=== PATIENT | male | born 1950 | race Hispanic/Latino ===

== ENCOUNTER 2017-09-21 06:53 | Day surgery (SDC) | payer MEDICARE, BC ==
[2017-09-21] MEDS ORDERED: Propofol 10 mg/ml Inj (20 ML) ONE ×2 (09:25→09:27)
--- NOTE | 2017-09-21 09:27 | CP.SDSHP ---
Same Day Surgery H & P - History Proposed Procedure: EGD/COLONSCOPY Pre-Op Diagnosis: SEE NOTES - Previous Medical/Surgical History Cardiac: Other Misc: Other Pain: 4.Moderate Pain Previous Surgical History: COLON POLYPS - Allergies Allergies: Allergies No Known Allergies Allergy (Verified 09/21/17 07:13) - Physical Exam General Appearance: N Vital Signs: Vital Signs 09/21/17 07:19 Temperature 96.4 F L Pulse Rate 71 Respiratory 19 Rate Blood Pressure 101/54 L O2 Sat by Pulse 97 Oximetry Mental Status: Alert & Oriented x3 Neuro: WNL Heart: Other Lungs: WNL GI: Other - {Optional Preform as Required} Breast: WNL Abdomen: Other Rectal: Other Integument: WNL : WNL Ortho: WNL ENT: WNL - Impression Pt. Evaluated Today:Candidate for Anesthesia & Procedure: Yes - Date & Time Time: 09:27 Short Stay Discharge - Short Stay Discharge Admitting Diagnosis/Reason for Visit: DYSPEPSIA / HX COLON POLYP Disposition: HOME/ ROUTINE
[2017-09-21] MEDS ORDERED: Lactated Ringer's 1,000 ML IV ONE ×2 (09:29)
[2017-09-21] MEDS ORDERED: Belladonna-Phenobarbital PO ONE (10:10)
[2017-09-21 10:14] VITALS: TEMP 97.5
[2017-09-21] MEDS ORDERED: Pantoprazole 40 mg EC Tab PO ONE (10:15)
[2017-09-21 10:16] VITALS: RESP 15
[2017-09-21 11:03] VITALS: BP 115/63; PULSE 60; O2SAT 98
== END 2017-09-21 11:00 | disposition home or self-care (01) ==
LOC: C.ENDO 06:53
PROVIDERS: ATTEND Specialist
DX: Z86.010 Personal history of colon polyps (principal); K30 Functional dyspepsia; Z12.11 Encounter for screening for malignant neoplasm of colon; K64.8 Other hemorrhoids; K58.9 Irritable bowel syndrome, unspecified; K57.30 Diverticulosis of large intestine without perforation or abscess without bleeding; R10.13 Epigastric pain
CPT/HCPCS: 43239; 45380; 88305; J2001; J2704; J7120